=== PATIENT | female | born 1945 | race Caucasian/White ===

== ENCOUNTER 2017-05-07 02:31 | Emergency (ER) | payer MEDICARE ==
[~2017-05-07] VITALS: Ht 165.1 cm; Wt 68.5 kg
[~2017-05-07 02:31] MED LIST: ATOR10 PO; VASO10TA8 PO
[2017-05-07 02:35] VITALS: BP 177/101; PULSE 122; RESP 20; TEMP 97.7; O2SAT 96
[2017-05-07] MEDS ORDERED: CARD120C4 PO (03:10)
--- NOTE | 2017-05-07 03:26 | PD ---
HPI Chief Complaint: Cardiac Complaint Time Seen by Provider: 03:20 Travel History International Travel<30 days: No Contact w/Intl Traveler<30days: No Traveled to known affect area: No History of Present Illness HPI The patient is a 71-year-old female that complains of palpitations with heart pounding yesterday morning and these 1 away. She complains of palpitations beginning at around 2:30 tonight again. She denies any syncopal or near syncopal spells, chest pain, shortness of breath or radiation of any pain. The patient had been on Lopressor 50 mg twice daily but on May 04 because of recurrent skin rashes thought to be from Lopressor she was changed to Cardizem CD 120 mg. Daily. She denies any fever, dysuria, frequency or urgency. She denies any nausea, vomiting or diarrhea. PFSH Past Medical History Cardiovascular Problems: Yes High Cholesterol: Yes Diabetes: No Diminished Hearing: No Hypertension: Yes Tetanus Vaccination: > 5 Years Influenza Vaccination: No ?: Not Menopausal: Yes Past Surgical History Tonsillectomy: Yes Other Surgery: Yes (SPLEENECTOMY A CHILD) Social History Alcohol Use: No Tobacco Use: No Substance Use: No Allergies-Medications (Allergen,Severity, Reaction): Coded Allergies: No Known Allergies (Unverified Allergy, Unknown, 05/07/17) Reported Meds & Prescriptions Reported Meds & Active Scripts Active Atenolol 25 Mg Tab 25 Mg PO BID Reported Cardizem CD 24 HR (Diltiazem CD 24 HR) 120 Mg Caper 120 Mg PO DAILY Review of Systems Except as stated in HPI: all other systems reviewed are Neg Physical Exam Narrative GENERAL: The patient is alert, oriented 3 in no apparent distress. Her heart rate is 122 initially, when I see her her heart rate is 103. The blood pressure is 177/101 but the rest the vital signs are normal. SKIN: Focused skin assessment warm/dry. HEAD: Atraumatic. Normocephalic. EYES: Pupils equal and round. No scleral icterus. No injection or drainage. ENT: No nasal bleeding or discharge. Mucous membranes pink and moist. NECK: Trachea midline. No JVD. CARDIOVASCULAR: Regular rate and rhythm. No murmur appreciated. RESPIRATORY: No accessory muscle use. Clear to auscultation. Breath sounds equal bilaterally. GASTROINTESTINAL: Abdomen soft, non-tender, nondistended. Hepatic and splenic margins not palpable. MUSCULOSKELETAL: No obvious deformities. No clubbing. No cyanosis. No edema. NEUROLOGICAL: Awake and alert. No obvious cranial nerve deficits. Motor grossly within normal limits. Normal speech. PSYCHIATRIC: Appropriate mood and affect; insight and judgment normal. Data Data Last Documented VS Vital Signs Date Time Temp Pulse Resp B/P (MAP) Pulse Ox O2 Delivery O2 Flow Rate FiO2 05/07/17 04:39 77 18 133/83 (100) 96 Room Air 05/07/17 02:35 97.7 Orders Orders Electrocardiogram (05/07/17 03:20) Complete Blood Count With Diff (05/07/17 03:20) Comprehensive Metabolic Panel (05/07/17 03:20) Troponin I (05/07/17 03:20) Urinalysis - C+S If Indicated (05/07/17 03:20) Magnesium (Mg) (05/07/17 03:20) Atenolol (Tenormin) (05/07/17 03:30) Atenolol (Tenormin) (05/07/17 03:30) Atenolol (Tenormin) (05/07/17 04:15) Urine Culture (05/07/17 04:55) Labs Laboratory Tests Test 05/07/17 04:00 05/07/17 04:55 White Blood Count 11.7 TH/MM3 Red Blood Count 4.79 MIL/MM3 Hemoglobin 14.5 GM/DL Hematocrit 44.6 % Mean Corpuscular Volume 93.0 FL Mean Corpuscular Hemoglobin 30.2 PG Mean Corpuscular Hemoglobin Concent 32.5 % Red Cell Distribution Width 13.4 % Platelet Count 383 TH/MM3 Mean Platelet Volume 7.8 FL Neutrophils (%) (Auto) 42.4 % Lymphocytes (%) (Auto) 38.6 % Monocytes (%) (Auto) 8.6 % Eosinophils (%) (Auto) 8.6 % Basophils (%) (Auto) 1.8 % Neutrophils # (Auto) 5.0 TH/MM3 Lymphocytes # (Auto) 4.5 TH/MM3 Monocytes # (Auto) 1.0 TH/MM3 Eosinophils # (Auto) 1.0 TH/MM3 Basophils # (Auto) 0.2 TH/MM3 CBC Comment DIFF FINAL Differential Comment Blood Urea Nitrogen 13 MG/DL Creatinine 0.82 MG/DL Random Glucose 132 MG/DL Total Protein 8.1 GM/DL Albumin 4.0 GM/DL Calcium Level 8.8 MG/DL Magnesium Level 2.2 MG/DL Alkaline Phosphatase 122 U/L Aspartate Amino Transf (AST/SGOT) 25 U/L Alanine Aminotransferase (ALT/SGPT) 29 U/L Total Bilirubin 0.3 MG/DL Sodium Level 139 MEQ/L Potassium Level 3.9 MEQ/L Chloride Level 107 MEQ/L Carbon Dioxide Level 23.2 MEQ/L Anion Gap 9 MEQ/L Estimat Glomerular Filtration Rate 69 ML/MIN Troponin I LESS THAN 0.02 NG/ML Urine Color YELLOW Urine Turbidity CLEAR Urine pH 6.5 Urine Specific [place] 1.008 Urine Protein NEG mg/dL Urine Glucose (UA) NEG mg/dL Urine Ketones NEG mg/dL Urine Occult Blood NEG Urine Nitrite NEG Urine Bilirubin NEG Urine Leukocyte Esterase SMALL Urine RBC 0-2 /hpf Urine WBC 9-14 /hpf Urine Squamous Epithelial Cells 0-5 /hpf Urine Bacteria OCC /hpf Microscopic Urinalysis Comment CULTURE INDICATED MDM Medical Decision Making Medical Screen Exam Complete: Yes Emergency Medical Condition: Yes Medical Record Reviewed: Yes Interpretation(s) The EKG initially showed sinus tachycardia with a rate of [address] elevation or depression. The urine shows small leukocyte esterase with 9-14 white cells and culture is indicated. The CBC shows a white count of 11,700 but is otherwise unremarkable. The complete metabolic profile shows an alkaline phosphatase of 122 but is otherwise normal. The troponin I is normal. Differential Diagnosis Infection causing tachycardia, anxiety causing tachycardia, withdrawal from beta dion causing tachycardia, electrolyte disorder causing tachycardia, dehydration causing tachycardia , anemia causing tachycardia Narrative Course The patient may have a tachycardia from withdrawal of the beta dion. Also possible is a urine infection causing tachycardia. She does have a urine infection and will be treated with Macrobid. She was given atenolol which completely normalized her heart rate and blood pressure. A few 25 mg atenolol will be given to the patient should she have a fast heartbeat before she sees Dr. Oglesby. She will be given Macrobid twice daily for 10 days. Diagnosis Primary Impression: Urinary tract infection Additional Impression: Drug withdrawal Additional Instructions: As we discussed, discontinue the antibiotic pills-the sulfa drug. You may be allergic to sulfa drugs. Use the anabolic ointment twice daily on the area on your leg. Med/Other Pt SpecificInfo: Prescription(s) given Scripts Nitrofurantoin Monohydrate Macrocrystals (Macrobid) 100 Mg Capsule 100 MG PO BID for Infection for 10 Days, #20 CAP 0 Refills Prov: Bala Patel MD 05/07/17 Atenolol (Atenolol) 25 Mg Tab 25 MG PO BID for as needed for fast heartbeat., #20 TAB 0 Refills Prov: Bala Patel MD 05/07/17 Disposition: 01 DISCHARGE HOME Condition: Stable Bala Patel MD May 07, 2017 03:26
[2017-05-07] MEDS ORDERED: ATENOLOL 50 MG TAB PO SCH (03:30)
[2017-05-07] MEDS ORDERED: ATENOLOL 100 MG TAB PO ONE (03:30)
[2017-05-07 03:38] VITALS: BP 130/68; PULSE 93; RESP 18; O2SAT 95
[2017-05-07] MEDS ORDERED: MUPIROCIN 2% OINT 22 GM TUBE TOPICAL ONE (04:00)
[2017-05-07 04:12] LABS: BASOPHIL # 0.2 TH/MM3 (0-0.2); BASOPHIL % 1.8 % (0.0-2.0); EOSINOPHIL % 8.6 % (0.0-4.0); HEMATOCRIT 44.6 % (35.0-46.0); HEMOGLOBIN 14.5 GM/DL (11.6-15.3); LYMPH % 38.6 % (9.0-44.0); LYMPHOCYTE # 4.5 TH/MM3 (1.0-4.8); MEAN CORPUSCULAR HEMOGLOBIN 30.2 PG (27.0-34.0); MEAN CORPUSCULAR HGB CONC 32.5 % (32.0-36.0); MEAN PLATELET VOLUME 7.8 FL (7.0-11.0); MONO % 8.6 % (0.0-8.0); NEUT % 42.4 % (16.0-70.0); PLATELET COUNT 383 TH/MM3 (150-450); RED BLOOD COUNT 4.79 MIL/MM3 (4.00-5.30); RED CELL DISTRIBUTION WIDTH 13.4 % (11.6-17.2); WHITE BLOOD COUNT 11.7 TH/MM3 (4.0-11.0)
[2017-05-07] MEDS ORDERED: ATENOLOL 50 MG TAB PO ONE (04:15)
[2017-05-07 04:21] LABS: CHLORIDE 107 MEQ/L (98-107); SODIUM (NA) 139 MEQ/L (136-145)
[2017-05-07 04:25] LABS: BICARBONATE 23.2 MEQ/L (21.0-32.0); BLOOD UREA NITROGEN 13 MG/DL (7-18); CALCIUM 8.8 MG/DL (8.5-10.1); GLUCOSE,RANDOM 132 MG/DL (74-106); MAGNESIUM 2.2 MG/DL (1.5-2.5)
[2017-05-07 04:28] LABS: ALT (GPT) 29 U/L (10-53); AST (GOT) 25 U/L (15-37); CREATININE 0.82 MG/DL (0.50-1.00); GLOMERULAR FILTRATION RATE 69 ML/MIN (>89)
[2017-05-07 04:30] LABS: TOTAL BILIRUBIN ADULT 0.3 MG/DL (0.2-1.0); TOTAL PROTEIN 8.1 GM/DL (6.4-8.2)
[2017-05-07 04:31] LABS: ALKALINE PHOSPHATASE 122 U/L (45-117)
[2017-05-07 04:33] LABS: TROPONIN I LESS THAN 0.02 NG/ML (0.02-0.05)
[2017-05-07 04:39] VITALS: BP 133/83; PULSE 77; RESP 18; O2SAT 96
[2017-05-07 05:01] LABS: BILIRUBIN, URINE NEG (NEG); BLOOD, URINE NEG (NEG); GLUCOSE,URINE NEG (NEG); KETONE, URINE NEG (NEG); NITRITE,URINE NEG (NEG); PH, URINE 6.5 (5.0-8.5); URINE LEUKOCYTE ESTERASE SMALL (NEG)
[2017-05-07 05:10] LABS: BACTERIA, URINE OCC /hpf; RBC, URINE 0-2 /hpf (0-3); SQUAMOUS EPITHELIAL CELL URINE 0-5 /hpf (0-5); URINE COLOR YELLOW (YELLW/STRAW)
[2017-05-07] MEDS ORDERED: ATEN25TA PO (05:14)
[2017-05-07] MEDS ORDERED: MACR100C2 PO (05:24)
[2017-05-07] MEDS ORDERED: NITROFURANTOIN MONOHYD MACROCR 100 MG CAP PO ONE (05:30)
[2017-05-07 05:40] VITALS: BP 132/86; PULSE 78; RESP 18; O2SAT 96
--- NOTE | 2017-05-07 12:56 | EKG ---
Date Performed: 05/07/2017 Time Performed: 03:58:10 PTAGE: 71 years EKG: Sinus tachycardia Left axis deviation Poor R-wave progression which may be due to left axis deviation, and is probable normal variant ABNORMAL ECG NO PREVIOUS TRACING DOCTOR: Horacio Rodriguez Interpretating Date/Time 05/07/2017 12:55:12
== END 2017-05-07 05:53 | disposition home or self-care (01) ==
LOC: PHED 02:31
DX: N39.0 Urinary tract infection, site not specified (principal); F19.939 Other psychoactive substance use, unspecified with withdrawal, unspecified; R00.0 Tachycardia, unspecified; R94.31 Abnormal electrocardiogram [ECG] [EKG]; E78.00 Pure hypercholesterolemia, unspecified; I10 Essential (primary) hypertension; Z79.899 Other long term (current) drug therapy
CPT/HCPCS: 80053; 81001; 83735; 84484; 85025; 87086; 93005